=== PATIENT | female | born 2000 | race Caucasian/White ===

== ENCOUNTER 2020-09-04 09:19 | Emergency (ER) | payer BC, OTHER ==
[2020-09-04] MEDS ORDERED: Dexamethasone 4 MG TAB ONE (09:53)
[2020-09-04 20:27] LABS: SARS-CoV-2 PCR by NAA Not Detected (NotDetected)
== END 2020-09-04 10:45 | disposition home or self-care (01) ==
LOC: CSHERS 09:19
DX: J20.8 Acute bronchitis due to other specified organisms (principal); Z20.822 Contact with and (suspected) exposure to COVID-19; J45.901 Unspecified asthma with (acute) exacerbation; I10 Essential (primary) hypertension; F17.210 Nicotine dependence, cigarettes, uncomplicated
CPT/HCPCS: 71045; 87635; 93005; J8540; U0003; U0005

== ENCOUNTER 2023-02-01 19:15 | Day surgery (SDC) | payer BC, OTHER ==
[2023-02-01 19:50] VITALS: BMI 33.3
[2023-02-01] MEDS ORDERED: Ondansetron ODT 4 MG TAB PO PRN (20:46)
[2023-02-01 21:38] LABS: Creatinine, Urine 68.85 mg/dL (47-110); Protein, Urine Random Quant Less than 10 mg/dL (1-14)
[2023-02-01 21:50] LABS: #Eosinphils 0.1 10x3/uL (0.0-0.5); #Monocytes 0.8 10x3/uL (0.0-1.1); #Neutrophils 6.1 10x3/uL (1.5-8.4); %Basophils 0.2 % (0.0-2.0); %Eosinophils 1.1 % (0.0-6.0); %Lymphocytes 23.2 % (18.0-47.0); ALT (SGPT) 9 U/L (8-55); AST (SGOT) 12 U/L (5-34); Albumin 3.2 g/dL (3.5-5.0); Alkaline Phosphatase 113 U/L (40-110); Anion Gap 11 mmol/L (10-20); BUN (Urea Nitrogen) 8 mg/dL (7.0-18.7); Bilirubin, Total 0.3 mg/dL (0.2-1.2); Calc. Creatinine Clearance 214 mL/min (70-130); Calcium 8.4 mg/dL (7.8-10.44); Carbon Dioxide 20 mmol/L (22-29); Chloride 106 mmol/L (98-107); Estimated GFR 120; Glucose 91 mg/dL (70-105); Hematocrit 29.1 % (34.9-44.5); Hemoglobin 9.6 g/dL (12.0-15.5); Mean Corpuscular Hemoglobin 29.4 pg (27.0-33.0); Platelet Count 216 10x3/uL (150-450); Potassium 3.4 mmol/L (3.5-5.1); Protein, Total 6.2 g/dL (6.0-8.3); Red Blood Cell (RBC) Count 3.27 10x6/uL (3.90-5.03); Sodium 134 mmol/L (136-145); White Blood Cell (WBC) Count 9.2 10x3/uL (3.5-10.5)
== END 2023-02-01 22:12 | disposition home or self-care (01) ==
LOC: CSHLD/OP 19:15
PROVIDERS: ATTEND Obstetrics & Gynecology
DX: O13.3 Gestational [pregnancy-induced] hypertension without significant proteinuria, third trimester (principal); O99.891 Other specified diseases and conditions complicating pregnancy; N89.8 Other specified noninflammatory disorders of vagina; O21.2 Late vomiting of pregnancy; O99.513 Diseases of the respiratory system complicating pregnancy, third trimester; J45.909 Unspecified asthma, uncomplicated; Z91.040 Latex allergy status; Z3A.34 34 weeks gestation of pregnancy; Z90.89 Acquired absence of other organs; Z79.82 Long term (current) use of aspirin; Z79.899 Other long term (current) drug therapy
CPT/HCPCS: 36415; 80053; 82570; 84156; 85025; 87480; 87510; 87660; Q0162

== ENCOUNTER 2023-02-16 15:06 | Inpatient (IN) | payer BC ==
[2023-02-16 15:39] VITALS: BMI 33.9
[2023-02-16] MEDS ORDERED: hydrALAZINE 20 MG/ML VIAL SLOW IVP PRN (16:01)
[2023-02-16 17:04] LABS: #Eosinphils 0.1 10x3/uL (0.0-0.5); #Monocytes 0.9 10x3/uL (0.0-1.1); #Neutrophils 6.6 10x3/uL (1.5-8.4); %Basophils 0.3 % (0.0-2.0); %Eosinophils 0.5 % (0.0-6.0); %Lymphocytes 17.2 % (18.0-47.0); %Monocytes 9.5 % (0.0-10.0); %Neutrophils 71.9 % (40.0-75.0); Hematocrit 27.5 % (34.9-44.5); Hemoglobin 9.3 g/dL (12.0-15.5); Mean Corpuscular HGB CONC 33.8 g/dL (32.0-36.0); Mean Corpuscular Hemoglobin 30.2 pg (27.0-33.0); Mean Corpuscular Volume 89.3 fl (81.6-98.3); Mean Platelet Volume 11.7 fl (7.4-10.4); Platelet Count 202 10x3/uL (150-450); Red Blood Cell (RBC) Count 3.08 10x6/uL (3.90-5.03); White Blood Cell (WBC) Count 9.3 10x3/uL (3.5-10.5)
[2023-02-16 17:06] LABS: ALT (SGPT) 9 U/L (8-55); AST (SGOT) 13 U/L (5-34); Albumin 2.9 g/dL (3.5-5.0); Alkaline Phosphatase 135 U/L (40-110); Anion Gap 14 mmol/L (10-20); BUN (Urea Nitrogen) 5 mg/dL (7.0-18.7); Bilirubin, Total 0.2 mg/dL (0.2-1.2); Calc. Creatinine Clearance 257 mL/min (70-130); Calcium 8.7 mg/dL (7.8-10.44); Carbon Dioxide 20 mmol/L (22-29); Chloride 107 mmol/L (98-107); Estimated GFR 129; Globulin 3.1 g/dL (2.4-3.5); Glucose 81 mg/dL (70-105); Potassium 3.7 mmol/L (3.5-5.1); Sodium 137 mmol/L (136-145)
[2023-02-16] MEDS ORDERED: Promethazine HCl 25 MG/ML VIAL IM PRN (17:17)
[2023-02-16 17:51] LABS: Creatinine, Urine 58.19 mg/dL (47-110); Protein, Urine Random Quant Less than 10 mg/dL (1-14)
[2023-02-16] MEDS ORDERED: Ondansetron PF 4 MG/2 ML Vial IVP PRN (22:14)
[2023-02-16] MEDS ORDERED: Misoprostol 200 MCG TAB PR PRN (22:14)
[2023-02-16] MEDS ORDERED: Acetaminophen 500 MG TAB PO PRN (22:14)
[2023-02-16] MEDS ORDERED: Carboprost 250 MCG/ML AMP IM PRN (22:14)
[2023-02-16] MEDS ORDERED: Tranexamic Acid 1,000 MG/10 ML VIAL IVP PRN (22:14)
[2023-02-16] MEDS ORDERED: Oxytocin 30 units/NS 500 ML 500 ML IV SCH (22:15)
[2023-02-17 03:32] LABS: HBSAg Index 0.12 S/CO (0-0.99); Hep B Surf Ag - L&D Non-Reactive S/CO (NonReactive); Syphilis Antibody Nonreactive (Nonreactive); Syphilis Antibody Index 0.04 S/CO (<1.00 Non-Reactive)
[2023-02-17 04:52] LABS: Hematocrit 27.5 % (34.9-44.5); Hemoglobin 9.2 g/dL (12.0-15.5); Mean Corpuscular HGB CONC 33.5 g/dL (32.0-36.0); Mean Corpuscular Hemoglobin 29.5 pg (27.0-33.0); Mean Corpuscular Volume 88.1 fl (81.6-98.3); Mean Platelet Volume 11.5 fl (7.4-10.4); Platelet Count 185 10x3/uL (150-450); RBC Distribution Width 13.2 % (11.5-14.5); Red Blood Cell (RBC) Count 3.12 10x6/uL (3.90-5.03); White Blood Cell (WBC) Count 8.5 10x3/uL (3.5-10.5)
[2023-02-17] MEDS ORDERED: Bicitra 30 ML UDCUP PO PRN (06:00)
[2023-02-17] MEDS ORDERED: CEFAZOLIN 2 GM in Sodium Chloride 0.9% 100 ML IVPB SCH (06:00)
[2023-02-17] MEDS ORDERED: Famotidine/PF 20 mg/2ml Vial SLOW IVP PRN (06:00)
[2023-02-17] MEDS: Lactated Ringer's 1,000 ML IV SCH ×2 (06:04→06:05)
[2023-02-17] MEDS ORDERED: Morphine PF 10 MG/10 ML VIAL ONE (07:05)
[2023-02-17] MEDS ORDERED: Phenylephrine 40 MG/NS 250 ML 250 ML ONE (07:05)
[2023-02-17] MEDS ORDERED: Ketorolac Tromethamine 30 MG/ML VIAL ONE (07:05)
[2023-02-17] MEDS ORDERED: Ondansetron PF 4 MG/2 ML Vial ONE (07:05)
[2023-02-17] MEDS ORDERED: Oxytocin 10 UNITS/ML VIAL ONE ×2 (07:05→08:38)
[2023-02-17] MEDS ORDERED: PHENYLEPHRINE-NS 100 MCG/ML 10 ML SYRINGE ONE (07:05)
[2023-02-17] MEDS ORDERED: Dexamethasone 4 mg/ml Vial ONE (07:05)
[2023-02-17] MEDS ORDERED: Tranexamic Acid 1,000 MG/10 ML VIAL ONE (08:56)
[2023-02-17] MEDS ORDERED: HYDROcodone/Acetaminophen 5/325 mg Tablet PO PRN (09:11)
[2023-02-17] MEDS ORDERED: Boostrix 0.5 ML (Tdap) VIAL (>/=7 yrs of age) IM ONE (09:11)
[2023-02-17] MEDS ORDERED: Acetaminophen 325 MG TAB PO PRN (09:11)
[2023-02-17] MEDS ORDERED: diphenhydrAMINE 50 MG/ML VIAL IVP PRN (09:42)
[2023-02-17] MEDS ORDERED: Naloxone HCl 0.4 mg/ml Vial IVP PRN ×2 (09:42)
[2023-02-17] MEDS ORDERED: Moisturizing Cream (Eucerin) 113 GM JAR TOP PRN (09:42)
[2023-02-17] MEDS ORDERED: Meperidine HCl/PF 25 MG/ML VIAL SLOW IVP PRN (09:42)
[2023-02-17] MEDS ORDERED: Promethazine HCl 25 MG SUPP PR PRN (09:42)
[2023-02-17] MEDS ORDERED: Ondansetron PF 4 MG/2 ML Vial IVP PRN ×2 (09:42)
[2023-02-17] MEDS ORDERED: fentaNYL 50 mcg/mL 1 mL Vial SLOW IVP PRN (09:42)
[2023-02-17] MEDS ORDERED: Promethazine HCl 25 MG/ML VIAL IM PRN (09:42)
[2023-02-17] MEDS ORDERED: Naloxone HCl 0.4 mg/ml Vial IV PRN (09:42)
[2023-02-17] MEDS ORDERED: Communication Order-Pharmacy FS SCH (09:45)
[2023-02-17] MEDS: Ketorolac Tromethamine 30 MG/ML VIAL IVP SCH ×2 (13:45→21:34)
[2023-02-17] MEDS: Simethicone Chewable 80 MG TAB PO PRN (13:46)
[2023-02-17] MEDS ORDERED: Ibuprofen 800 MG TAB PO SCH (14:00)
[2023-02-17] MEDS: Docusate 100 MG CAP PO SCH (21:33)
[2023-02-18] MEDS: Ketorolac Tromethamine 30 MG/ML VIAL IVP SCH ×2 (04:02→10:05)
[2023-02-18 04:25] LABS: Mean Corpuscular HGB CONC 33.3 g/dL (32.0-36.0); Mean Corpuscular Hemoglobin 29.7 pg (27.0-33.0); Mean Corpuscular Volume 89.2 fl (81.6-98.3); Mean Platelet Volume 11.9 fl (7.4-10.4); Platelet Count 183 10x3/uL (150-450); Red Blood Cell (RBC) Count 2.69 10x6/uL (3.90-5.03); White Blood Cell (WBC) Count 11.6 10x3/uL (3.5-10.5)
[2023-02-18] MEDS: Simethicone Chewable 80 MG TAB PO PRN (05:58)
[2023-02-18] MEDS: HYDROcodone/Acetaminophen 5/325 mg Tablet PO PRN ×4 (05:58→21:03)
[2023-02-18] MEDS: Docusate 100 MG CAP PO SCH ×2 (09:07→21:02)
[2023-02-18] MEDS: FLUoxetine HCl 10 MG CAP PO SCH (12:33)
[2023-02-18] MEDS ORDERED: Ibuprofen 800 MG TAB PO SCH (16:00)
[2023-02-18] MEDS: Ferrous Sulfate 325 MG TAB PO SCH (17:12)
[2023-02-19] MEDS: Ibuprofen 800 MG TAB PO SCH ×3 (01:11→12:47)
[2023-02-19] MEDS: HYDROcodone/Acetaminophen 5/325 mg Tablet PO PRN ×2 (01:12→06:09)
[2023-02-19] MEDS: Simethicone Chewable 80 MG TAB PO PRN (06:08)
[2023-02-19 07:48] VITALS: BP 119/61; TEMP 98.6
[2023-02-19] MEDS: Docusate 100 MG CAP PO SCH (08:32)
[2023-02-19] MEDS: Ferrous Sulfate 325 MG TAB PO SCH (08:33)
[2023-02-19] MEDS ORDERED: HYDROcodone/Acetaminophen 5/325 mg Tablet PO PRN (09:24)
[2023-02-19] MEDS ORDERED: Acetaminophen 325 MG TAB PO SCH (10:00)
[2023-02-19] MEDS: FLUoxetine HCl 10 MG CAP PO SCH (10:38)
[2023-02-19] MEDS ORDERED: guaiFENesin ER 600 MG TAB PO SCH ×2 (11:00→21:00)
== END 2023-02-19 15:00 | disposition home or self-care (01) | DRG 788 ==
LOC: CSHLD/OP 15:06 → CSHLD 22:14 → CSHPP 02-17 11:30
PROVIDERS: ADMIT Obstetrics & Gynecology; ATTEND Obstetrics & Gynecology
PROC: 10D00Z1 Extraction of Products of Conception, Low, Open Approach (ICD-10-PCS; principal; 2023-02-17)
DX: O13.4 Gestational [pregnancy-induced] hypertension without significant proteinuria, complicating childbirth (principal); Z3A.37 37 weeks gestation of pregnancy; Z37.0 Single live birth; O34.211 Maternal care for low transverse scar from previous cesarean delivery; Z90.89 Acquired absence of other organs; Z79.899 Other long term (current) drug therapy; Z82.49 Family history of ischemic heart disease and other diseases of the circulatory system; Z83.3 Family history of diabetes mellitus; Z91.040 Latex allergy status; O99.02 Anemia complicating childbirth; D64.9 Anemia, unspecified
CPT/HCPCS: 36415; 51702; 80053; 82570; 84156; 85025; 85027; 86780; 86850; 86900; 86901; 87340; 93970; 99285; J1100; J1200; J1885; J2274; J2405; J2590; J7120; S0028